=== PATIENT | female | born 1995 | race African-American/Black ===

== ENCOUNTER 2022-05-24 12:55 | Emergency (ER) | payer OTHER | END 2022-05-24 15:51 | disposition home or self-care (01) | LOC: JD.ED 12:55 | DX: S13.4XXA Sprain of ligaments of cervical spine, initial encounter (principal); M62.838 Other muscle spasm; V89.2XXA Person injured in unspecified motor-vehicle accident, traffic, initial encounter | CPT/HCPCS: 99282; 99283 ==